=== PATIENT | female | born 1995 | race African-American/Black ===

== ENCOUNTER 2018-04-03 16:23 | Inpatient (IN) | payer OTHER ==
[2018-04-03] MEDS ORDERED: PENICILLIN G POTASSIUM IV 5 MU in D5W MINI-BAG PLUS 100 ML IV (18:21)
[2018-04-03] MEDS: LACTATED RINGER'S 1000 ML IV (18:34)
[2018-04-03 18:39] LABS: HEMATOCRIT 33.5 % (36.0-47.0); HEMOGLOBIN 10.7 g/dl (12.0-15.5); MEAN CORPUSCULAR HEMOGLOBIN 27.1 pg (27.0-33.0); MEAN CORPUSCULAR HGB CONC 31.9 g/dl (32.0-36.5); MEAN CORPUSCULAR VOLUME 84.8 fl (80.0-96.0); PLATELET COUNT, AUTOMATED 337 10^3/uL (150-450); RED BLOOD COUNT 3.95 10^6/uL (4.00-5.40); RED CELL DISTRIBUTION WIDTH 13.8 % (11.5-14.5); WHITE BLOOD COUNT 9.1 10^3/uL (4.0-10.0)
[2018-04-03] MEDS: PENICILLIN G POTASSIUM IV 5 MU in D5W MINI-BAG PLUS 100 ML IV (18:48)
[2018-04-03 19:05] LABS: ANION GAP 12 MEQ/L (8-16); BLOOD UREA NITROGEN 3 MG/DL (7-18); CARBON DIOXIDE LEVEL 21 MEQ/L (21-32); CHLORIDE LEVEL 106 MEQ/L (98-107); CREATININE FOR GFR 0.64 MG/DL (0.55-1.30); GLOMERULAR FILTRATION RATE > 60.0 (>60); GLUCOSE, FASTING 65 MG/DL (70-100); POTASSIUM SERUM 3.5 MEQ/L (3.5-5.1); SODIUM LEVEL 139 MEQ/L (136-145)
[2018-04-03] MEDS ORDERED: FENTANYL 2MCG/ML ROPIVACAINE 0.2% IN 0.9% NACL 200ML IVBAG As Ordered (19:16)
[2018-04-03] MEDS: LR 1,000 ML IV (19:35)
[2018-04-03] MEDS ORDERED: EPIDURAL COMMENT XX (19:59)
[2018-04-03] MEDS ORDERED: diphenhydrAMINE INJ 50MG/ML VIAL (J1200) IV (19:59)
[2018-04-03] MEDS ORDERED: NALOXONE INJ 0.4 MG/1 ML VIAL (J2310) IV (19:59)
[2018-04-03] MEDS ORDERED: ONDANSETRON 4MG/2ML VIAL (J2405) IV (19:59)
[2018-04-03] MEDS ORDERED: ePHEDrine SULFATE 25 MG/5 ML(5MG/ML) SYRINGE IV (19:59)
[2018-04-03] MEDS ORDERED: REFRIGERATOR IV KEYS XX (19:59)
[2018-04-03] MEDS ORDERED: LACTATED RINGER'S 1000 ML IV (19:59)
[2018-04-03] MEDS ORDERED: EPIDURAL/PCA KEYS XX (19:59)
[2018-04-03] MEDS: FENTANYL/ROPIVACAINE/NACL BAG 200 ML EPIDURAL (20:11)
[2018-04-03] MEDS ORDERED: **PENDING PCN ENTRY XX (21:00)
[2018-04-03] MEDS: PENICILLIN G POTASSIUM IV 2.5 MU in APPROPRIATE DILUENT 1 EA IV (22:29)
[2018-04-03] MEDS ORDERED: PENICILLIN G POTASSIUM IV 2.5 MU in APPROPRIATE DILUENT 1 EA IV (22:30)
[2018-04-04] MEDS ORDERED: OXYTOCIN 30 UNITS IN 0.9% NaCl 500ML IV BAG (J2590) As Ordered (00:03)
[2018-04-04] MEDS ORDERED: OXYTOCIN DRIP 30 UNITS in APPROPRIATE DILUENT 1 EA IV (00:39)
[2018-04-04] MEDS ORDERED: MEASLES,MUMPS,RUBELLA VACCINE INJ (MMR-II) (90707) SC (00:45)
[2018-04-04] MEDS ORDERED: DIBUCAINE 1% OINTMENT 30GM TOP (00:45)
[2018-04-04] MEDS ORDERED: METOCLOPRAMIDE INJ 10MG/2ML VIAL (J2765) IV (00:45)
[2018-04-04] MEDS ORDERED: ACETAMINOPHEN TAB 650MG DOSE (2X325MG) PO (00:45)
[2018-04-04] MEDS ORDERED: IBUPROFEN 800 MG TAB PO (00:45)
[2018-04-04] MEDS ORDERED: RHOGAM 300 MCG (1500 IU) INJ (J2790) IM (00:45)
[2018-04-04] MEDS: PRENATAL VITAMINS CHEWABLE TABLET PO (07:25)
[2018-04-04] MEDS: DOCUSATE SODIUM 100 MG CAP PO ×2 (07:25→20:34)
[2018-04-05] MEDS: DOCUSATE SODIUM 100 MG CAP PO ×2 (07:26→19:52)
[2018-04-05] MEDS: PRENATAL VITAMINS CHEWABLE TABLET PO (07:27)
[2018-04-06] MEDS: DOCUSATE SODIUM 100 MG CAP PO (07:36)
[2018-04-06] MEDS: PRENATAL VITAMINS CHEWABLE TABLET PO (07:36)
== END 2018-04-06 11:15 | disposition home or self-care (01) | DRG 807 ==
LOC: M LDO 16:23 → M OBS 04-04 02:50 → M LDI 18:18
PROC: 10E0XZZ Delivery of Products of Conception, External Approach (ICD-10-PCS; principal; 2018-04-04)
PROC: 0W8NXZZ Division of Female Perineum, External Approach (ICD-10-PCS; 2018-04-04)
DX: O36.63X0 Maternal care for excessive fetal growth, third trimester, not applicable or unspecified (principal); Z37.0 Single live birth; Z3A.39 39 weeks gestation of pregnancy; Z91.19 Patient's noncompliance with other medical treatment and regimen